=== PATIENT | female | born 1995 | race Caucasian/White ===

== ENCOUNTER 2017-02-17 12:36 | Emergency (ER) | payer BC, MEDICAID ==
[~2017-02-17] VITALS: Ht 167.6 cm; Wt 100.0 kg
[2017-02-17] MEDS ORDERED: KETOROLAC 30 MG/ML VIAL (J1885) IV ONE (13:30)
[2017-02-17] MEDS ORDERED: ONDANSETRON 4MG/2ML VIAL (J2405) IV ONE (13:30)
--- NOTE | 2017-02-17 13:56 | REP ---
Abdominal right upper quadrant ultrasound, emergency room request: There is right upper quadrant and epigastric pain. There is biliary sludge and there are small calculi in the gallbladder. There is no gallbladder wall thickening or pericholecystic fluid to suggest acute cholecystitis. There is no intrahepatic or extrahepatic biliary dilatation to suggest biliary obstruction. The common duct measures 2.7 mm in diameter. The hepatic parenchyma is homogeneous and unremarkable. Balloon the visualized portion of the pancreatic head is unremarkable. The body and tail of the pancreas are obscured by bowel gas. There is no right renal hydronephrosis, calculus, mass or cyst. Right kidney is normal size measuring 10.9 cm in craniocaudad length. Impression: Multiple small gallbladder calculi and biliary sludge in the gallbladder. No ultrasound evidence of acute cholecystitis or biliary duct obstruction. Otherwise, negative abdominal right upper quadrant ultrasound. Signed by Austen Estevez MD 02/17/2017 01:47 P
[2017-02-17 14:15] LABS: BASO % 0.3 % (0.0-1.0); EOS # 0.1 K/mm3 (0.0-0.50); EOS % 0.8 % (0.0-3.0); LARGE UNSTAINED CELL # 0.1 K/mm3 (0.0-0.4); LARGE UNSTAINED CELL % 0.7 % (0.0-4.0); LYMPH # 0.7 K/mm3 (1.5-6.5); LYMPH % 9.2 % (24.0-44.0); MEAN CORPUSCULAR HEMOGLOBIN 28.5 pg (27.0-33.0); MEAN CORPUSCULAR HGB CONC 33.8 g/dl (32.0-36.5); MEAN CORPUSCULAR VOLUME 84.4 fl (80.0-96.0); MONO # 0.3 K/mm3 (0.0-0.8); MONO % 3.8 % (0.0-5.0); NEUTROPHILS # 6.6 K/mm3 (1.8-7.7); NEUTROPHILS % 85.1 % (36.0-66.0); PLATELET COUNT, AUTOMATED 347 k/mm3 (150-450); WHITE BLOOD COUNT 7.7 K/mm3 (4.0-10.0)
[2017-02-17 14:26] LABS: MICROSCOPIC INDICATED? YES (NO)
[2017-02-17 14:27] LABS: BACTERIA, URINE SMALL AMOUNT; MICROSCOPIC EXAM PERFORMED; RBC, URINE NONE SEEN /hpf (0-3); SQUAMOUS EPITHELIAL CELL URINE MOD AMOUNT /hpf (SMALL AMT)
[2017-02-17 14:28] LABS: ALBUMIN 3.5 GM/DL (3.2-5.2); ALBUMIN/GLOBULIN RATIO 0.81 (1.00-1.93); ALKALINE PHOSPHATASE 101 U/L (45-117); ALT/SGPT 580 U/L (12-78); AMYLASE 43 U/L (25-115); ANION GAP 6 MEQ/L (8-16); AST/SGOT 649 U/L (15-37); BILIRUBIN,DIRECT 1.3 MG/DL (0.0-0.2); BILIRUBIN,TOTAL 1.9 MG/DL (0.2-1.0); BLOOD UREA NITROGEN 10 MG/DL (7-18); CALCIUM LEVEL 9.3 MG/DL (8.5-10.1); CARBON DIOXIDE LEVEL 29 MEQ/L (21-32); CHLORIDE LEVEL 105 MEQ/L (98-107); CREATININE FOR GFR 0.79 MG/DL (0.55-1.02); GLOMERULAR FILTRATION RATE > 60.0 (>60); GLUCOSE, FASTING 125 MG/DL (70-105); POTASSIUM SERUM 3.7 MEQ/L (3.5-5.1); SODIUM LEVEL 140 MEQ/L (136-145); TOTAL PROTEIN 7.8 GM/DL (6.4-8.2)
[2017-02-17] MEDS ORDERED: ZOFR4TAB3 PO (15:21)
[2017-02-17] MEDS ORDERED: ULTR50TA8 PO (15:21)
[2017-02-17 15:41] VITALS: BP 127/82
[2017-05-11] MEDS ORDERED: PROAAER10 INH (08:31)
== END 2017-02-17 15:42 | disposition home or self-care (01) ==
LOC: M ED 12:36
DX: K80.70 Calculus of gallbladder and bile duct without cholecystitis without obstruction (principal); R11.2 Nausea with vomiting, unspecified; R10.11 Right upper quadrant pain; J45.909 Unspecified asthma, uncomplicated
CPT/HCPCS: 76705; 80048; 80076; 81001; 81025; 82150; 83690; 85025; 96374; 96375; 99284; J1885; J2405

== ENCOUNTER 2017-04-01 04:19 | Emergency (ER) | payer BC, MEDICAID ==
[~2017-04-01] VITALS: Ht 167.6 cm; Wt 100.0 kg
[~2017-04-01 04:19] MED LIST: ULTR50TA8 PO; ZOFR4TAB3 PO
[2017-04-01] MEDS ORDERED: NS 1,000 ML IV ONE (05:30)
[2017-04-01 06:11] LABS: BASO % 0.2 % (0.0-1.0); EOS # 0.1 K/mm3 (0.0-0.50); EOS % 0.6 % (0.0-3.0); LARGE UNSTAINED CELL # 0.1 K/mm3 (0.0-0.4); LARGE UNSTAINED CELL % 0.9 % (0.0-4.0); LYMPH # 1.2 K/mm3 (1.5-6.5); LYMPH % 11.5 % (24.0-44.0); MEAN CORPUSCULAR HEMOGLOBIN 28.6 pg (27.0-33.0); MEAN CORPUSCULAR HGB CONC 34.1 g/dl (32.0-36.5); MONO # 0.5 K/mm3 (0.0-0.8); MONO % 4.6 % (0.0-5.0); NEUTROPHILS # 8.5 K/mm3 (1.8-7.7); NEUTROPHILS % 82.3 % (36.0-66.0); PLATELET COUNT, AUTOMATED 377 k/mm3 (150-450); RED CELL DISTRIBUTION WIDTH 13.2 % (11.5-14.5); WHITE BLOOD COUNT 10.3 K/mm3 (4.0-10.0)
[2017-04-01 06:28] LABS: CONTROL LINE HCG INT CTR LINE PRESENT
[2017-04-01 06:45] LABS: ALBUMIN 3.6 GM/DL (3.2-5.2); ALBUMIN/GLOBULIN RATIO 0.97 (1.00-1.93); ALKALINE PHOSPHATASE 81 U/L (45-117); ALT/SGPT 95 U/L (12-78); ANION GAP 7 MEQ/L (8-16); AST/SGOT 162 U/L (15-37); BILIRUBIN,DIRECT 0.3 MG/DL (0.0-0.2); BILIRUBIN,TOTAL 0.6 MG/DL (0.2-1.0); BLOOD UREA NITROGEN 13 MG/DL (7-18); CALCIUM LEVEL 8.8 MG/DL (8.5-10.1); CARBON DIOXIDE LEVEL 25 MEQ/L (21-32); CHLORIDE LEVEL 107 MEQ/L (98-107); CREATININE FOR GFR 0.73 MG/DL (0.55-1.02); GLOMERULAR FILTRATION RATE > 60.0 (>60); GLUCOSE, FASTING 113 MG/DL (70-105); POTASSIUM SERUM 4.1 MEQ/L (3.5-5.1); SODIUM LEVEL 139 MEQ/L (136-145); TOTAL PROTEIN 7.3 GM/DL (6.4-8.2)
[2017-04-01] MEDS ORDERED: KETOROLAC 30 MG/ML VIAL (J1885) IV ONE (07:15)
--- NOTE | 2017-04-01 08:05 | REP ---
Clinical: Acute right upper quadrant abdominal pain. Technique: Avitia scale ultrasound using curved array transducer. Findings: The liver and visualized pancreas are normal in contour, size, and echogenicity without focal hepatic or pancreatic lesions identified. The gallbladder is distended measuring greater than 10 cm in length and 5 cm diameter and demonstrates sludge and stones without wall thickening or obvious pericholecystic fluid. The common bile duct is mildly dilated to 7.2 mm diameter. Findings are equivocal for acute cholecystitis and require correlation. The right kidney is normal in reniform shape without hydronephrosis and measures 11.9 x 4.9 x 4.7 cm. No ascites. Visualized portions of the abdominal aorta normal. Impression: Distended gallbladder with sludge and stones as well as dilated common bile duct is 7.2 mm is suspicious for acute cholecystitis and requires correlation. Signed by Noe Wong MD 04/01/2017 07:57 A
[2017-04-01 09:30] LABS: EOS % 0.2 % (0.0-3.0); LARGE UNSTAINED CELL # 0.1 K/mm3 (0.0-0.4); LARGE UNSTAINED CELL % 0.7 % (0.0-4.0); LYMPH # 0.6 K/mm3 (1.5-6.5); MEAN CORPUSCULAR HEMOGLOBIN 28.6 pg (27.0-33.0); MEAN CORPUSCULAR HGB CONC 34.1 g/dl (32.0-36.5); MEAN CORPUSCULAR VOLUME 84.1 fl (80.0-96.0); MONO # 0.3 K/mm3 (0.0-0.8); MONO % 3.2 % (0.0-5.0); NEUTROPHILS # 7.8 K/mm3 (1.8-7.7); NEUTROPHILS % 88.8 % (36.0-66.0); PLATELET COUNT, AUTOMATED 303 k/mm3 (150-450); RED CELL DISTRIBUTION WIDTH 13.1 % (11.5-14.5); WHITE BLOOD COUNT 8.8 K/mm3 (4.0-10.0)
[2017-04-01 09:58] VITALS: BP 123/67
[2017-05-11] MEDS ORDERED: PROAAER10 INH (08:31)
== END 2017-04-01 10:08 | disposition home or self-care (01) ==
LOC: M ED 04:19 → EDBD 04:19 → M ED 10:08
DX: K80.20 Calculus of gallbladder without cholecystitis without obstruction (principal); E66.9 Obesity, unspecified; K58.9 Irritable bowel syndrome, unspecified; Z79.899 Other long term (current) drug therapy
CPT/HCPCS: 76705; 80048; 80076; 81001; 83690; 84703; 85025; 87040; 87086; 93041; 96361; 96374; 99284; J1885

== ENCOUNTER 2017-05-19 09:48 | Day surgery (SDC) | payer BC, MEDICAID ==
[~2017-05-19] VITALS: Ht 167.6 cm; Wt 112.0 kg
[~2017-05-19 09:48] MED LIST changes: +GLYCOPYRROLATE INJ 0.2 MG/ML 2 ML VIAL As Ordered ONE; +HYDROmorphone HCL 2 MG/ML 1ML VIAL (J1170) As Ordered ONE; +LIDOCAINE 2% INJ 100 MG/5 ML SDV (FOR ANES.) As Ordered ONE; +LIDOCAINE 2% JELLY 30 ML As Ordered ONE; +MIDAZOLAM INJ 2 MG/2 ML VIAL (J2250) As Ordered ONE; +NEOSTIGMINE 10 MG/10 ML VIAL (J2710) As Ordered ONE; +ONDANSETRON 4MG/2ML VIAL (J2405) As Ordered ONE; +PROAAER10 INH; +PROPOFOL 200 MG/20 ML VIAL As Ordered ONE; +ROCURONIUM BROMIDE 50 MG/5 ML VIAL/SYRINGE As Ordered ONE; +dexameTHASONE 4 MG/ML 1ML VIAL (J1100) As Ordered ONE; +fentaNYL 100 MCG/2 ML INJECTION (J3010) As Ordered ONE
[2017-05-19] MEDS ORDERED: LR 1,000 ML IV ONE (10:00)
[2017-05-19 10:45] LABS: CONTROL LINE UCG INT CTR LINE PRESENT
[2017-05-19] MEDS ORDERED: BUPIVACAINE HCL 0.25% 30 ML VIAL As Ordered ONE (11:10)
[2017-05-19] MEDS ORDERED: CONRAY-60 60% 50ML VIAL (Q9961) As Ordered ONE (11:10)
[2017-05-19] MEDS ORDERED: ROCURONIUM BROMIDE 50 MG/5 ML VIAL/SYRINGE As Ordered ONE (11:57)
[2017-05-19] MEDS ORDERED: ESMOLOL INJ 100MG/10ML VIAL As Ordered ONE (12:46)
[2017-05-19] MEDS ORDERED: PROPOFOL 200 MG/20 ML VIAL As Ordered ONE (13:03)
--- NOTE | 2017-05-19 13:23 | REP ---
INTRAOPERATIVE CHOLANGIOGRAM: Single view from intraoperative cholangiogram performed. The common bile duct is normal in caliber with no filling defect of stricture. There is free flow of contrast into the duodenum. Four seconds fluoroscopy time utilized. Signed by Austen Avitia MD 05/19/2017 05:49 P
[2017-05-19] MEDS: ONDANSETRON 4MG/2ML VIAL (J2405) IV PRN ×2 (13:39→14:00)
[2017-05-19] MEDS ORDERED: NORCO, ANEXSIA 5/325MG TABLET (HYDROcodone/ACETAMINOPHEN) PO PRN (13:45)
[2017-05-19] MEDS ORDERED: MORPHINE 2 MG/ML 1ML SYRINGE IV PRN (13:45)
[2017-05-19] MEDS ORDERED: LR 1,000 ML IV SCH (13:45)
[2017-05-19] MEDS ORDERED: ACETAMINOPHEN TAB 650MG DOSE (2X325MG) PO PRN (13:45)
[2017-05-19] MEDS ORDERED: fentaNYL 100 MCG/2 ML INJECTION (J3010) IV PRN (13:45)
[2017-05-19] MEDS ORDERED: LEVALBUTEROL 1.25 MG/0.5 ML CONCENTRATE NEB As Ordered ONE (14:03)
[2017-05-19] MEDS ORDERED: PERCOCET 5MG/325MG TAB As Ordered ONE (14:03)
[2017-05-19] MEDS ORDERED: PERCOCET 5MG/325MG TAB PO PRN (14:30)
[2017-05-19] MEDS ORDERED: LEVALBUTEROL 1.25 MG/0.5 ML CONCENTRATE NEB INH ONE (14:30)
[2017-05-19] MEDS ORDERED: METOCLOPRAMIDE INJ 10MG/2ML VIAL (J2765) As Ordered ONE (15:50)
[2017-05-19] MEDS ORDERED: LR 500 ML IV SCH (16:00)
[2017-05-19] MEDS ORDERED: METOCLOPRAMIDE INJ 10MG/2ML VIAL (J2765) IV ONE (16:00)
[2017-05-19 16:50] VITALS: BP 110/57
--- NOTE | 2017-05-23 09:04 | RO ---
DATE OF PROCEDURE: 05/19/2017 PREOPERATIVE DIAGNOSIS: Symptomatic gallstones and possible common bile duct stone. POSTOPERATIVE DIAGNOSIS Symptomatic gallstones with normal intraoperative cholangiogram. PROCEDURE PERFORMED: Laparoscopic cholecystectomy with intraoperative cholangiogram. SURGEON: Dr. White ANESTHESIA: General. INDICATIONS FOR PROCEDURE Patient is a 21-year-old woman who developed upper abdominal pain. Her symptoms were felt to be consistent with a biliary etiology. Gallbladder ultrasound showed cholelithiasis with some biliary sludge and there was a suggestion that the common bile duct was borderline enlarged. The patient is now for a laparoscopic cholecystectomy with intraoperative cholangiogram. OPERATIVE PROCEDURE: The patient was placed on the operating table in a supine position. She was placed under general endotracheal anesthesia. The patient's abdomen was prepped and draped in a sterile fashion. 0.25% Marcaine was infiltrated at each of the trocar sites prior to insertion. A short supraumbilical midline incision was made and deepened through the abundant subcutaneous fat to the fascia which was opened in the midline. The peritoneum was opened bluntly. The Amadou cannula was inserted and the abdomen was insufflated with carbon dioxide gas. The laparoscope was placed. Initial examination showed a normal-appearing liver. Much of the bowel was obscured by a large fold of omental fat. The portion of the left colon that was seen appeared normal. The patient was tilted to a reverse Trendelenburg position and rolled slightly to the left. Two 5 mm trocars were placed in the right upper quadrant and a third 5 mm trocar was placed in the left upper quadrant. Graspers were inserted. The edge of the liver was elevated and the gallbladder was identified. The gallbladder appeared perhaps slightly thick-walled but not acutely inflamed. The fundus of the gallbladder was grasped and elevated. Dissection was begun at the region of the gallbladder neck. Dissection proceeded through the pericholecystic fibrofatty tissue. The cystic duct was clearly identified. The cholecystic artery was identified slightly deep to this. A small amount of bleeding occurred after dissection, but after clipping the cholecystic artery, this ceased. The cystic duct was clipped at the gallbladder neck and then nicked. A balloon cholangiogram catheter was inserted. Cholangiograms were obtained using fluoroscopy after the injection of 30% Conray. The images obtained were excellent. The intrahepatic radicals appeared normal. The common bile duct did not appear enlarged. There was normal tapering of the distal common bile duct with free flow into the duodenum. The cholangiogram catheter was removed and the cystic duct was clipped and divided. The cholecystic artery was then divided. A dissection was then performed using the spatula cautery to remove the gallbladder from the gallbladder bed. Near the fundus of the gallbladder a small perforation of the gallbladder occurred with spillage of some clear bile into the subhepatic space. The gallbladder was freed and placed in an Endopouch. The right upper quadrant was then copiously irrigated using saline to remove any spilled bile. Inspection revealed a single bleeding point at the edge of the gallbladder bed and this was cauterized. Final inspection showed no evidence of bleeding or bile leak. The patient was returned to a flat position. The abdomen was deflated and the trocars were removed. The gallbladder was recovered through the Terrell site. This was sent for permanent pathology. The fascia at the Terrell site was closed with interrupted simple sutures of 2-0 Vicryl. The skin incisions were all closed with buried 5-0 Vicryl and Steri-Strips. Light dressings were applied. The patient tolerated the procedure well without apparent complication. She was awakened in the operating room, extubated and moved to the recovery room in stable condition. ALY
== END 2017-05-19 17:16 | disposition home or self-care (01) ==
LOC: M SDC 09:48
PROVIDERS: ATTEND Surgery
DX: K80.10 Calculus of gallbladder with chronic cholecystitis without obstruction (principal); J45.909 Unspecified asthma, uncomplicated; E66.01 Morbid (severe) obesity due to excess calories; Z68.41 Body mass index [BMI] 40.0-44.9, adult
CPT/HCPCS: 47563; 74300; 84703; 88304; J0690; J1100; J1170; J2250; J2405; J2710; J2765; J3010; Q9961

== ENCOUNTER 2020-11-01 12:07 | Emergency (ER) | payer BC, MEDICAID, OTHER ==
[~2020-11-01] VITALS: Ht 167.6 cm; Wt 111.5 kg
[~2020-11-01 12:07] MED LIST changes: -GLYCOPYRROLATE INJ 0.2 MG/ML 2 ML VIAL As Ordered ONE; -HYDROmorphone HCL 2 MG/ML 1ML VIAL (J1170) As Ordered ONE; -LIDOCAINE 2% INJ 100 MG/5 ML SDV (FOR ANES.) As Ordered ONE; -LIDOCAINE 2% JELLY 30 ML As Ordered ONE; -MIDAZOLAM INJ 2 MG/2 ML VIAL (J2250) As Ordered ONE; -NEOSTIGMINE 10 MG/10 ML VIAL (J2710) As Ordered ONE; -ONDANSETRON 4MG/2ML VIAL (J2405) As Ordered ONE; -PROPOFOL 200 MG/20 ML VIAL As Ordered ONE; -ROCURONIUM BROMIDE 50 MG/5 ML VIAL/SYRINGE As Ordered ONE; +ZOFR4TAB14 PO; -ZOFR4TAB3 PO; -dexameTHASONE 4 MG/ML 1ML VIAL (J1100) As Ordered ONE; -fentaNYL 100 MCG/2 ML INJECTION (J3010) As Ordered ONE
[2020-11-01 12:54] LABS: BASO % 0.3 % (0.0-1.0); EOS # 0.3 10^3/uL (0.0-0.5); EOS % 3.5 % (0.0-3.0); HEMATOCRIT 42.9 % (36.0-47.0); HEMOGLOBIN 13.5 g/dl (12.0-15.5); LYMPH # 1.9 10^3/uL (1.5-5.0); LYMPH % 23.8 % (24.0-44.0); MEAN CORPUSCULAR HEMOGLOBIN 26.9 pg (27.0-33.0); MEAN CORPUSCULAR HGB CONC 31.5 g/dl (32.0-36.5); MEAN CORPUSCULAR VOLUME 85.6 fl (80.0-96.0); MONO # 0.5 10^3/uL (0.0-0.8); MONO % 5.8 % (2.0-8.0); NEUTROPHILS # 5.2 10^3/uL (1.5-8.5); NEUTROPHILS % 66.3 % (36.0-66.0); PLATELET COUNT, AUTOMATED 421 10^3/uL (150-450); RED BLOOD COUNT 5.01 10^6/uL (4.00-5.40); WHITE BLOOD COUNT 7.8 10^3/uL (4.0-10.0)
[2020-11-01 13:11] LABS: INR 0.93; PROTHROMBIN TIME 12.7 SECONDS (12.5-14.3)
[2020-11-01 13:28] LABS: ALBUMIN 3.9 GM/DL (3.2-5.2); ALT/SGPT 27 U/L (12-78); AMYLASE 57 U/L (25-115); BILIRUBIN,DIRECT 0.1 MG/DL (0.0-0.2); BILIRUBIN,TOTAL 0.4 MG/DL (0.2-1.0); BLOOD UREA NITROGEN 14 MG/DL (7-18); CALCIUM LEVEL 9.1 MG/DL (8.5-10.1); CARBON DIOXIDE LEVEL 30 MEQ/L (21-32); CHLORIDE LEVEL 109 MEQ/L (98-107); CREATININE FOR GFR 0.73 MG/DL (0.55-1.30); GLOMERULAR FILTRATION RATE > 60.0 (>60); GLUCOSE, FASTING 91 MG/DL (70-100); LIPASE 93 U/L (73-393); SODIUM LEVEL 141 MEQ/L (136-145); TOTAL PROTEIN 7.6 GM/DL (6.4-8.2)
[2020-11-01] MEDS ORDERED: ONDANSETRON 4MG/2ML VIAL IV ONE (14:45)
[2020-11-01] MEDS ORDERED: MORPHINE 4 MG/ML 1ML VIAL/SYRINGE (J2270) IV PRN (14:45)
[2020-11-01] MEDS ORDERED: ISOVUE-370 76% 100ML VIAL As Ordered ONE (14:56)
--- NOTE | 2020-11-01 15:28 | REP ---
INDICATION: epigastric pain COMPARISON: None. TECHNIQUE: PA/Lateral FINDINGS: Lungs: Clear, no infiltrate. Heart: Normal in size. Mediastinum: Mediastinal silhouette unremarkable. Pleural angles: Unremarkable.. Bones and soft tissues: Unremarkable. IMPRESSION: No acute pulmonary disease. <Electronically signed by Austen Avitia > 11/01/20 [id number]
--- NOTE | 2020-11-01 15:52 | REP ---
INDICATION: epigastric pain COMPARISON: None. TECHNIQUE: CT Scan of the abdomen was performed with intravenous administration of 100 cc of Isovue 370, without oral contrast. FINDINGS: Lung bases: Unremarkable. Liver: Normal Gallbladder: Prior cholecystectomy. Spleen: Normal. Adrenals: Normal. Pancreas: Normal. Kidneys: Normal. Small and large bowel: Unremarkable. Free fluid: None. Abdominal aorta: No aneurysm or dissection. Adenopathy: None. Osseous structures: Unremarkable. The appendix is normal. IMPRESSION: Negative CT abdomen with IV contrast. <Electronically signed by Austen Avitia > 11/01/20 [id number]
[2020-11-01 15:58] VITALS: BP 136/75
[2020-11-01] MEDS ORDERED: OMEP40CA97 PO (16:09)
[2020-11-01] MEDS ORDERED: OXYCODONE/APAP 5MG/325MG(BULK FOR ED) 1 TABLET PO ONE (16:10)
--- NOTE | 2020-11-01 16:25 | ECGEPIP ---
[facility] - ED Test Date: 2020-11-01 Pat Name: DAKOTA ALICIA Department: Room: - Gender: Female Domestic Maid: : 1995 Requested By: Mary Caldwell PA-C Order Number: [id number] Reading MD: Gio Azul Measurements Intervals Andrews Rate: 43 P: 88 GA: 174 QRS: 42 QRSD: 88 T: 55 QT: 458 QTc: 387 Interpretive Statements Marked sinus bradycardia with sinus arrhythmia Comparison tracing not on file Electronically Signed on 11-01-2020 16:24:39 EDT by Gio Azul
== END 2020-11-01 16:23 | disposition home or self-care (01) ==
LOC: M ED 12:07
DX: R31.9 Hematuria, unspecified (principal); J45.909 Unspecified asthma, uncomplicated
CPT/HCPCS: 71046; 74160; 80047; 80048; 80076; 81001; 82150; 83690; 84702; 85025; 85610; 85730; 93005; 96374; 96375; 99284; J2270; J2405; Q9967